=== PATIENT | female | born 1935 | race Caucasian/White ===

== ENCOUNTER 2018-11-16 09:31 | Observation (INO) | payer MEDICARE ==
[2018-11-16 11:07] LABS: BASO % 0.4 % (0.0-2.0); LYMPH # 0.5 K/uL (1.0-4.3); LYMPH % 8.8 % (20.0-40.0); MEAN CORPUSCULAR HEMOGLOBIN 32.4 pg (27.0-31.0); MEAN CORPUSCULAR HGB CONC 33.3 g/dL (33.0-37.0); MEAN PLATELET VOLUME 8.8 fL (7.2-11.7); MONO # 0.2 K/uL (0.0-0.8); MONO % 3.5 % (0.0-10.0); NEUT # 5.3 K/uL (1.8-7.0); NEUT % 87.3 % (50.0-75.0); PLATELET COUNT 191 K/uL (130-400); RBC 3.43 Mil/uL (3.80-5.20); RED CELL DISTRIBUTION WIDTH 15.4 % (11.5-14.5)
[2018-11-16 11:13] LABS: INR 1.1; PROTHROMBIN TIME 12.4 SECONDS (9.7-12.2)
[2018-11-16 11:19] LABS: HEMOGLOBIN 11.1 g/dL (11.0-16.0); MEAN CELL VOLUME 97.4 fL (81.0-99.0)
--- NOTE | 2018-11-16 11:34 | CT ---
Date of service: 11/16/2018 PROCEDURE: CT HEAD WITHOUT CONTRAST. HISTORY: dizzy COMPARISON: None available. TECHNIQUE: Axial computed tomography images were obtained through the head/brain without intravenous contrast. Radiation dose: Total exam DLP = 970.75 mGy-cm. This CT exam was performed using one or more of the following dose reduction techniques: Automated exposure control, adjustment of the mA and/or kV according to patient size, and/or use of iterative reconstruction technique. FINDINGS: HEMORRHAGE: No intracranial hemorrhage. BRAIN: No mass effect or edema. Minimal atrophy consistent with patient age. Mild periventricular white matter lucency consistent with chronic microvascular ischemic change. No evidence of acute infarct. VENTRICLES: Unremarkable. No hydrocephalus. CALVARIUM: Unremarkable. PARANASAL SINUSES: Unremarkable as visualized. No significant inflammatory changes. MASTOID AIR CELLS: Unremarkable as visualized. No inflammatory changes. OTHER FINDINGS: None. IMPRESSION: No intracranial mass, hemorrhage or evidence of acute infarct. Age related atrophy and mild chronic white matter ischemic change.
[2018-11-16 11:49] LABS: LYMPHOCYTE 7 % (20-40); MONOCYTE 4 % (0-10); NEUTROPHIL 89 % (50-75); PLATELET ESTIMATE NORMAL (NORMAL); TOTAL CELLS COUNTED 100
[2018-11-16 11:50] LABS: ANISOCYTOSIS SLIGHT; HYPOCHROMIC SLIGHT; POLYCHROMIC SLIGHT
[2018-11-16 11:52] LABS: ALB/GLOB RATIO 1.1 (1.0-2.1); ALBUMIN 4.1 g/dL (3.5-5.0); ALT/SGPT 21 U/L (9-52); AST/SGOT 31 U/L (14-36); BLOOD UREA NITROGEN 18 mg/dL (7-17); CALCIUM 9.5 mg/dl (8.6-10.4); GFR NON-AFRICAN AMERICAN > 60
--- NOTE | 2018-11-16 11:56 | RAD ---
Date of service: 11/16/2018 PROCEDURE: CHEST RADIOGRAPH, 1 VIEW HISTORY: dizzy COMPARISON: None available. FINDINGS: LUNGS: Clear. PLEURA: No pneumothorax or pleural fluid seen. CARDIOVASCULAR: There is atherosclerotic calcification the thoracic aorta. Normal. OSSEOUS STRUCTURES: No significant abnormalities. VISUALIZED UPPER ABDOMEN: Normal. OTHER FINDINGS: None. IMPRESSION: No active disease.
[2018-11-16 12:21] LABS: SQUAMOUS EPITHIAL < 1 /hpf (0-5); URINE BACTERIA RARE (<OCC); URINE BILIRUBIN NEGATIVE (NEGATIVE); URINE BLOOD NEGATIVE (NEGATIVE); URINE CLARITY Clear (Clear); URINE COLOR Yellow (YELLOW); URINE GLUCOSE (UA) NORMAL (Normal); URINE LEUKOCYTE ESTERASE NEG Leu/uL (Negative); URINE PROTEIN 2+ mg/dL (NEGATIVE); URINE UROBILINOGEN NORMAL mg/dL (0.2-1.0)
--- NOTE | 2018-11-16 14:16 | C.PDOC ---
History Of Present Illness 82 year old female presents to the emergency department with complaints of dizziness for the last two weeks. Patient states that she was seen by her PMD two days ago and given Meclizine. Patient reports that she does not feel better after finishing it. She denies headache or pain, and describes her dizziness as feeling unsteady. Time Seen by Provider: 11/16/18 09:55 Chief Complaint (Nursing): Dizziness/Lightheaded History Per: Patient History/Exam Limitations: no limitations Onset/Duration Of Symptoms: Other (two weeks) Current Symptoms Are (Timing): Still Present Past Medical History Reviewed: Historical Data, Nursing Documentation, Vital Signs Vital Signs: Last Vital Signs Temp 98.5 F 11/16/18 13:10 Pulse 91 H 11/16/18 13:10 Resp 18 11/16/18 13:10 BP 189/60 H 11/16/18 13:10 Pulse Ox 98 11/16/18 13:10 - Medical History PMH: Diabetes, HTN Surgical History: No Surg Hx Family History: States: No Known Family Hx - Social History Hx Tobacco Use: Yes Hx Alcohol Use: No Hx Substance Use: No - Immunization History Hx Tetanus Toxoid Vaccination: No Hx Influenza Vaccination: No Hx Pneumococcal Vaccination: No Review Of Systems Except As Marked, All Systems Reviewed And Found Negative. Constitutional: Negative for: Fever, Chills Gastrointestinal: Negative for: Nausea, Vomiting, Abdominal Pain, Diarrhea Neurological: Positive for: Dizziness. Negative for: Headache Physical Exam - Physical Exam Appears: Non-toxic, No Acute Distress Skin: Warm, Dry Head: Atraumatic, Normacephalic Eye(s): bilateral: Normal Inspection, PERRL, EOMI Nose: Normal Oral Mucosa: Moist Throat: Normal, No Erythema Neck: Normal, Supple Chest: Symmetrical, No Tenderness Cardiovascular: Rhythm Regular, No Murmur Respiratory: Normal Breath Sounds, No Rales, No Rhonchi, No Wheezing Gastrointestinal/Abdominal: Soft, No Tenderness Extremity: Normal ROM Neurological/Psych: Oriented x3, Normal Speech, Normal Cognition ED Course And Treatment - Laboratory Results Result Diagrams: 11/16/18 10:59 11/16/18 10:59 Lab Results: PT 12.4 SECONDS (9.7-12.2) H 11/16/18 10:59 INR 1.1 11/16/18 10:59 APTT 30 SECONDS (21-34) 11/16/18 10:59 Troponin I < 0.0120 ng/mL (0.00-0.120) 11/16/18 10:59 Total Bilirubin 0.4 mg/dL (0.2-1.3) 11/16/18 10:59 AST 31 U/L (14-36) 11/16/18 10:59 ALT 21 U/L (9-52) 11/16/18 10:59 Alkaline Phosphatase 104 U/L (38-126) 11/16/18 10:59 Total Protein 7.6 g/dL (6.3-8.3) 11/16/18 10:59 Albumin 4.1 g/dL (3.5-5.0) 11/16/18 10:59 Globulin 3.6 gm/dL (2.2-3.9) 11/16/18 10:59 Albumin/Globulin Ratio 1.1 (1.0-2.1) 11/16/18 10:59 Urine Color Yellow (YELLOW) 11/16/18 12:01 Urine Clarity Clear (Clear) 11/16/18 12:01 Urine pH 7.0 (5.0-8.0) 11/16/18 12:01 Ur Specific Lov[place] 1.008 (1.003-1.030) 11/16/18 12:01 Urine Protein 2+ mg/dL (NEGATIVE) H 11/16/18 12:01 Urine Glucose (UA) Normal mg/dL (Normal) 11/16/18 12:01 Urine Ketones Negative mg/dL (NEGATIVE) 11/16/18 12:01 Urine Blood Negative (NEGATIVE) 11/16/18 12:01 Urine Nitrate Negative (NEGATIVE) 11/16/18 12:01 Urine Bilirubin Negative (NEGATIVE) 11/16/18 12:01 Urine Urobilinogen Normal mg/dL (0.2-1.0) 11/16/18 12:01 Ur Leukocyte Esterase Neg Sarah/uL (Negative) 11/16/18 12:01 Urine WBC (Auto) < 1 /hpf (0-5) 11/16/18 12:01 Urine RBC (Auto) 2 /hpf (0-3) 11/16/18 12:01 Ur Squamous Epith Cells < 1 /hpf (0-5) 11/16/18 12:01 Urine Bacteria Rare (<OCC) 11/16/18 12:01 Interpretation Of ECG: Normal sinus rhythm at 84bpm. Premature supraventricular complexes, incomplete RBBB. O2 Sat by Pulse Oximetry: 98 (RA) Pulse Ox Interpretation: Normal - Radiology CXR: Interpreted by Me, Viewed By Me CXR Interpretation: Yes: No Acute Disease - CT Scan/US CT Head Other Rad Studies (CT/US): Read By Radiologist, Radiology Report Reviewed CT/US Interpretation: Date of service: 11/16/2018. PROCEDURE: CT HEAD WITHOUT CONTRAST. HISTORY: dizzy. COMPARISON: None available. TECHNIQUE: Axial computed tomography images were obtained through the head/brain without intravenous contrast. Radiation dose: Total exam DLP = 970.75 mGy-cm. This CT exam was performed using one or more of the following dose reduction techniques: Automated exposure control, adjustment of the mA and/or kV according to patient size, and/or use of iterative reconstruction technique. FINDINGS: HEMORRHAGE: No intracranial hemorrhage. BRAIN: No mass effect or edema. Minimal atrophy consistent with patient age. Mild periventricular white matter lucency consistent with chronic microvascular ischemic change. No evidence of acute infarct. VENTRICLES: Unremarkable. No hydrocephalus. CALVARIUM: Unremarkable. PARANASAL SINUSES: Unremarkable as visualized. No significant inflammatory changes. MASTOID AIR CELLS: Unremarkable as visualized. No inflammatory changes. OTHER FINDINGS: None. IMPRESSION: No intracranial mass, hemorrhage or evidence of acute infarct. Age related atrophy and mild chronic white matter ischemic change. Medical Decision Making Medical Decision Making: Plan: CT Head EKG Chemistry Bloodwork CXR Urinalysis Dr. Maciej Licona accepted the patient to telemetry for observation. Disposition - Disposition Disposition: HOSPITALIZED Disposition Time: 14:15 Condition: FAIR - Clinical Impression Clinical Impression: Dizziness - PA / INTRAVENOUS THERAPY NURSE / Resident Statement MD/DO has reviewed & agrees with the documentation as recorded. - Scribe Statement The provider has reviewed the documentation as recorded by the Scribe (Scott Eliane) All medical record entries made by the Scribe were at my direction and personally dictated by me. I have reviewed the chart and agree that the record accurately reflects my personal performance of the history, physical exam, medical decision making, and the department course for this patient. I have also personally directed, reviewed, and agree with the discharge instructions and disposition. Decision To Admit - Pt Status Changed To: Hospital Disposition Of: Observation - . Bed Request Type: Telemetry Admitting Physician: Mandy Licona Patient Diagnosis: Dizziness
[2018-11-16 18:37] VITALS: RESP 20
--- NOTE | 2018-11-16 19:51 | CP.PCM.HP ---
Past Patient History - Past Social History Smoking Status: Heavy Smoker > 10 Cigarettes Daily - CARDIAC Hx Hypertension: Yes - ENDOCRINE/METABOLIC Hx Diabetes Mellitus Type 2: Yes - PSYCHIATRIC Hx Substance Use: No - SURGICAL HISTORY Hx Surgeries: No - ANESTHESIA Hx Anesthesia: No Meds Allergies/Adverse Reactions: Allergies Allergy/AdvReac Type Severity Reaction Status Date / Time No Known Allergies Allergy Verified 11/16/18 09:40 Results - Vital Signs Recent Vital Signs: Last Vital Signs Temp 98.2 F 11/16/18 16:00 Pulse 76 11/16/18 16:00 Resp 20 11/16/18 16:00 BP 135/56 L 11/16/18 16:00 Pulse Ox 98 11/16/18 16:57 - Labs Result Diagrams: 11/16/18 10:59 11/16/18 10:59 Labs: Laboratory Results - last 24 hr 11/16/18 11/16/18 11/16/18 10:59 10:59 10:59 WBC 6.0 RBC 3.43 L Hgb 11.1 D Hct 33.4 L MCV 97.4 D MCH 32.4 H MCHC 33.3 RDW 15.4 H Plt Count 191 MPV 8.8 Neut % (Auto) 87.3 H Lymph % (Auto) 8.8 L [place] % (Auto) 3.5 Eos % (Auto) 0.0 Baso % (Auto) 0.4 Neut # (Auto) 5.3 Lymph # (Auto) 0.5 L [place] # (Auto) 0.2 Eos # (Auto) 0.0 Baso # (Auto) 0.0 Neutrophils % (Manual) 89 H Lymphocytes % (Manual) 7 L Monocytes % (Manual) 4 Platelet Estimate Normal Polychromasia Slight Hypochromasia (manual) Slight Anisocytosis (manual) Slight Macrocytosis (manual) Slight PT 12.4 H INR 1.1 APTT 30 Sodium Potassium Chloride Carbon Dioxide Anion Gap BUN Creatinine Est GFR ( Amer) Est GFR (Non-Af Amer) Random Glucose Calcium Total Bilirubin AST ALT Alkaline Phosphatase Total Creatine Kinase CK-MB (Mass) Troponin I Total Protein Albumin Globulin Albumin/Globulin Ratio Urine Color Urine Clarity Urine pH Ur Specific Wilkinson Urine Protein Urine Glucose (UA) Urine Ketones Urine Blood Urine Nitrate Urine Bilirubin Urine Urobilinogen Ur Leukocyte Esterase Urine WBC (Auto) Urine RBC (Auto) Ur Squamous Epith Cells Urine Bacteria Influenza Typ A,B (EIA) Negative for flu a/b 11/16/18 11/16/18 10:59 12:01 WBC RBC Hgb Hct MCV MCH MCHC RDW Plt Count MPV Neut % (Auto) Lymph % (Auto) [place] % (Auto) Eos % (Auto) Baso % (Auto) Neut # (Auto) Lymph # (Auto) [place] # (Auto) Eos # (Auto) Baso # (Auto) Neutrophils % (Manual) Lymphocytes % (Manual) Monocytes % (Manual) Platelet Estimate Polychromasia Hypochromasia (manual) Anisocytosis (manual) Macrocytosis (manual) PT INR APTT Sodium 132 Potassium 4.3 Chloride 102 Carbon Dioxide 25 Anion Gap 11 BUN 18 H Creatinine 0.8 Est GFR ( Amer) > 60 Est GFR (Non-Af Amer) > 60 Random Glucose 147 H Calcium 9.5 Total Bilirubin 0.4 AST 31 ALT 21 Alkaline Phosphatase 104 Total Creatine Kinase 62 CK-MB (Mass) 0.40 Troponin I < 0.0120 Total Protein 7.6 Albumin 4.1 Globulin 3.6 Albumin/Globulin Ratio 1.1 Urine Color Yellow Urine Clarity Clear Urine pH 7.0 Ur Specific Wilkinson 1.008 Urine Protein 2+ H Urine Glucose (UA) Normal Urine Ketones Negative Urine Blood Negative Urine Nitrate Negative Urine Bilirubin Negative Urine Urobilinogen Normal Ur Leukocyte Esterase Neg Urine WBC (Auto) < 1 Urine RBC (Auto) 2 Ur Squamous Epith Cells < 1 Urine Bacteria Rare Influenza Typ A,B (EIA)
[2018-11-16] MEDS: (Novolog) Insulin Aspart, Recombinant 100 u/ml 10 ml vial SC SCH (22:26)
[2018-11-17] MEDS: (Novolog) Insulin Aspart, Recombinant 100 u/ml 10 ml vial SC SCH ×5 (07:38→22:00)
[2018-11-17 11:47] LABS: FREE T4 0.74 ng/dL (0.78-2.19)
--- NOTE | 2018-11-17 13:39 | CP.PCM.CON ---
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 Past Patient History - Past Social History Smoking Status: Heavy Smoker > 10 Cigarettes Daily - CARDIAC Hx Hypertension: Yes - ENDOCRINE/METABOLIC Hx Diabetes Mellitus Type 2: Yes - PSYCHIATRIC Hx Substance Use: No - SURGICAL HISTORY Hx Surgeries: No - ANESTHESIA Hx Anesthesia: No Meds Allergies/Adverse Reactions: Allergies Allergy/AdvReac Type Severity Reaction Status Date / Time No Known Allergies Allergy Verified 11/16/18 09:40 - Medications Medications: Current Medications Clopidogrel Bisulfate (Plavix) 75 mg PO DAILY [facility] Enoxaparin Sodium (Lovenox) 40 mg SC DAILY [facility] Famotidine (Pepcid) 20 mg PO BID [facility] Last Admin: 11/17/18 09:49 Dose: 20 mg Insulin Aspart (Novolog) 0 unit SC [facility]; Protocol Last Admin: 11/17/18 12:32 Dose: Not Given Meclizine HCl (Antivert) 25 mg PO TID [facility] Last Admin: 11/17/18 09:55 Dose: 25 mg Metformin HCl (Glucophage) 1,000 mg PO BID [facility] Last Admin: 11/17/18 09:49 Dose: 1,000 mg Ondansetron HCl (Zofran Odt) 4 mg PO BID PRN PRN Reason: Nausea/Vomiting Pioglitazone HCl (Actos) 15 mg PO DAILY [facility] Last Admin: 11/17/18 09:49 Dose: 15 mg Results - Vital Signs Recent Vital Signs: Last Vital Signs Temp 98.8 F 11/17/18 09:24 Pulse 71 11/17/18 09:24 Resp 20 11/17/18 09:24 BP 152/60 H 11/17/18 09:24 Pulse Ox 98 11/17/18 09:24 - Labs Result Diagrams: 11/16/18 10:59 11/16/18 10:59 Labs: Laboratory Results - last 24 hr 11/16/18 11/16/18 11/17/18 16:39 21:20 06:25 ESR POC Glucose (mg/dL) 148 H 142 H 131 H Hemoglobin A1c C-Reactive Protein Triglycerides Cholesterol LDL Cholesterol Direct HDL Cholesterol Vitamin B12 Free T4 TSH 3rd Generation 11/17/18 11/17/18 11/17/18 11:10 11:10 11:10 ESR 45 H POC Glucose (mg/dL) Hemoglobin A1c 6.2 C-Reactive Protein 5.20 Triglycerides 64 Cholesterol 140 LDL Cholesterol Direct 69 HDL Cholesterol 70 Vitamin B12 310 Free T4 TSH 3rd Generation 11/17/18 11/17/18 11:10 11:37 ESR POC Glucose (mg/dL) 167 H Hemoglobin A1c C-Reactive Protein Triglycerides Cholesterol LDL Cholesterol Direct HDL Cholesterol Vitamin B12 Free T4 0.74 L TSH 3rd Generation 0.99
[2018-11-17] MEDS: Enoxaparin 40 mg Syringe SC SCH (13:53)
--- NOTE | 2018-11-17 15:29 | CP.PCM.PN ---
Subjective - Date & Time of Evaluation Date of Evaluation: 11/17/18 Time of Evaluation: 11:45 - Subjective Subjective: clinically same Objective - Vital Signs/Intake and Output Vital Signs (last 24 hours): Temp Pulse Resp BP Pulse Ox 98.8 F 71 20 152/60 H 98 11/17/18 09:24 11/17/18 09:24 11/17/18 09:24 11/17/18 09:24 11/17/18 14:06 - Medications Medications: Current Medications Clopidogrel Bisulfate (Plavix) 75 mg PO DAILY [facility] Enoxaparin Sodium (Lovenox) 40 mg SC DAILY [facility] Last Admin: 11/17/18 13:53 Dose: 40 mg Famotidine (Pepcid) 20 mg PO BID [facility] Last Admin: 11/17/18 09:49 Dose: 20 mg Insulin Aspart (Novolog) 0 unit SC [facility]; Protocol Last Admin: 11/17/18 12:32 Dose: Not Given Meclizine HCl (Antivert) 25 mg PO TID [facility] Last Admin: 11/17/18 13:53 Dose: 25 mg Metformin HCl (Glucophage) 1,000 mg PO BID [facility] Last Admin: 11/17/18 09:49 Dose: 1,000 mg Ondansetron HCl (Zofran Odt) 4 mg PO BID PRN PRN Reason: Nausea/Vomiting Pioglitazone HCl (Actos) 15 mg PO DAILY [facility] Last Admin: 11/17/18 09:49 Dose: 15 mg - Labs Labs: 11/16/18 10:59 11/16/18 10:59 PT 12.4 SECONDS (9.7-12.2) H 11/16/18 10:59 INR 1.1 11/16/18 10:59 APTT 30 SECONDS (21-34) 11/16/18 10:59
--- NOTE | 2018-11-18 07:14 | CON ---
DATE: 11/17/2018 ATTENDING PHYSICIAN: Candelaria Licona MD LOCATION: The patient is seen in room number 669, bed A. REASON FOR CONSULTATION: Dizziness. CHIEF COMPLAINT: The patient was brought into [facility] with history of recurrent dizziness which is not getting better by medication which was given by her PMD. From neurological point of view, I was called in to evaluate her for further management. HISTORY OF PRESENT ILLNESS: The patient is an 82-year-old moderately built, right-handed female presenting with about 2 weeks history of dizziness, manifesting as vertiginous feeling, associating with some nauseous sensation and aversion to the food. Not associating with visual or bulbar dysfunction. No hearing loss. No history of preceding illness or trauma to her head or neck. No similar episodes happened in the past. These symptoms momentarily happened, and it disappeared which she never had it before in the past. PAST MEDICAL HISTORY: Ath-[id number] diabetes mellitus, hypertension, and dyslipidemia. ALLERGIES: NO KNOWN ALLERGIES. PERSONAL HISTORY: She smokes. No history of alcohol abuse. REVIEW OF SYSTEMS: Twelve-point system being reviewed. From neuro, new dizziness. MEDICATIONS: Actos, Antivert, Glucophage, Lovenox, Pepcid, Zofran. PHYSICAL EXAMINATION: VITAL SIGNS: Blood pressure 152/60, mean artery pressure of 90, respiratory rate 20, pulse rate 71 and regular, temperature 98.8. NECK: Supple. No carotid bruits. HEART: Sounds regular. CHEST: Fair air entry. EXTREMITIES: No edema in legs. NEUROLOGIC EXAMINATION: Mental status examination: She is awake, alert and oriented to person, place, and time. Speech is clear. Naming, repetition, fluency, and comprehension all within normal. Cranial nerve examination: Visual field intact. Pupils reactive to light. Extraocular movement normal. No nystagmus. No facial sensory deficit. No facial asymmetry. Hearing is normal. Tongue is midline. Good gag. Motor examination: On outstretched hand with eyes closed, no drift noted. Power is symmetric on either side. Deep reflexes biceps, brachialis, triceps, knee, and ankle all are absent. Plantars are equivocal response. Sensory examination: Bilateral distal symmetric sensorimotor neuropathy. Coordination: [id number] test is intact. Gait: Broad based gait. Romberg sign negative. CONCLUSION: On reviewing her medical history from her as well as medical records and my neurological examination, suggestive of possible posterior cerebral artery ischemic process, considering her risk factors, hypertension, dyslipidemia, and diabetes mellitus should be ruled out. Bilateral distal symmetric sensorimotor neuropathy. Workup CT of the head reviewed, no acute pathology is noted. EKG normal sinus rhythm. Blood workup, WBC 6, hemoglobin 11.1, hematocrit 33.4, platelet 181. PT 12.4, INR 1.1, PTT 30. Sodium 132, potassium 4.3, chloride 102, bicarbonate 25, BUN 18, GFR more than 60, glucose 131. Urine shows 2+ proteinuria. RECOMMENDATIONS: 1. MRI of the brain to rule out ischemic process. 2. Carotid Doppler to assess the stenosis of carotid as well as vertebral arteries. 3. Echocardiogram to rule out any cardiogenic source for her problem. 4. Out of bed, encouraging to have fluids. 5. Stroke prophylaxis. 6. Plavix is started in addition to her medication. 7. Fall precaution. The patient will be followed while she is in the hospital. Abdon Sandra MD
[2018-11-18] MEDS: (Novolog) Insulin Aspart, Recombinant 100 u/ml 10 ml vial SC SCH ×4 (07:53→21:59)
--- NOTE | 2018-11-18 09:35 | PN ---
DATE: 11/18/2018 TIME OF EVALUATION: 06:45 a.m. NEUROLOGICAL PROBLEM: Dizziness. PHYSICAL EXAMINATION: VITAL SIGNS: Blood pressure 124/47, mean arterial pressure 72, respiratory rate 18, temperature 98.2 with a pulse rate of 66. The patient is still complaining of persistent dizziness, inability to walk good, holding objects with sensitivity to smell. The patient is also nauseous and vomited last night. On examination, no new focality noted. The patient's medications for her nausea can be changed and fall precautions. The patient is scheduled to have MRI of the brain which could be done today and will be following her closely. Continue the present management as recommended. Abdon Sandra MD
[2018-11-18] MEDS: Dextrose 5%/0.45% NS 1,000 ML IV SCH ×2 (11:33→21:59)
--- NOTE | 2018-11-18 11:34 | MRI ---
Date of service: 11/18/2018 PROCEDURE: MRI BRAIN WITHOUT CONTRAST HISTORY: GAMING PIT BOSS STROKE PROCESS /IAC PATH COMPARISON: CT head without contrast from 11/16/2018. TECHNIQUE: Multiplanar, multisequence MR images of the brain were obtained without intravenous contrast enhancement. FINDINGS: HEMORRHAGE: None DWI: No evidence of an acute or early subacute infarction. BRAIN PARENCHYMA: There are mild chronic microangiopathic changes. There is no mass, mass effect or abnormal extra-axial fluid collection. There is no territorial infarction. The midline sagittal structures are normal. VENTRICLES: There is mild age-related global parenchymal volume loss and proportionate enlargement of the ventricles and cortical sulci. CRANIUM: There is normal bone marrow signal pattern. ORBITS: Grossly normal in appearance. PARANASAL SINUSES/MASTOIDS: Predominantly clear. Minimal fluid in the left mastoid tip. VASCULAR SYSTEM: There are normal signal voids in the larger intracranial arteries. OTHER FINDINGS: None. IMPRESSION: No acute intracranial abnormality Mild chronic microangiopathic changes and mild age-related global parenchymal loss.
[2018-11-18] MEDS: Enoxaparin 40 mg Syringe SC SCH (11:38)
[2018-11-18 14:13] LABS: BASO % 0.2 % (0.0-2.0); EOS % 0.2 % (0.0-4.0); LYMPH % 22.6 % (20.0-40.0); MEAN CELL VOLUME 97.1 fL (81.0-99.0); MEAN CORPUSCULAR HEMOGLOBIN 33.2 pg (27.0-31.0); MEAN CORPUSCULAR HGB CONC 34.2 g/dL (33.0-37.0); MEAN PLATELET VOLUME 8.9 fL (7.2-11.7); MONO # 0.4 K/uL (0.0-0.8); MONO % 8.8 % (0.0-10.0); NEUT # 3.1 K/uL (1.8-7.0); NEUT % 68.2 % (50.0-75.0); RBC 3.31 Mil/uL (3.80-5.20); RED CELL DISTRIBUTION WIDTH 15.5 % (11.5-14.5); WHITE BLOOD COUNT 4.5 K/uL (4.8-10.8)
[2018-11-18 14:36] LABS: ALB/GLOB RATIO 1.2 (1.0-2.1); ALBUMIN 3.8 g/dL (3.5-5.0); ALT/SGPT 19 U/L (9-52); AST/SGOT 22 U/L (14-36); BLOOD UREA NITROGEN 13 mg/dL (7-17); CALCIUM 8.4 mg/dl (8.6-10.4); GFR NON-AFRICAN AMERICAN > 60
--- NOTE | 2018-11-18 18:50 | CP.PCM.PN ---
Subjective - Date & Time of Evaluation Date of Evaluation: 11/18/18 Time of Evaluation: 11:15 - Subjective Subjective: clinically same Objective - Vital Signs/Intake and Output Vital Signs (last 24 hours): Temp Pulse Resp BP Pulse Ox 98 F 72 20 149/55 L 97 11/18/18 15:52 11/18/18 16:48 11/18/18 15:52 11/18/18 15:52 11/18/18 15:52 - Medications Medications: Current Medications Clopidogrel Bisulfate (Plavix) 75 mg PO DAILY [facility] Last Admin: 11/18/18 09:43 Dose: 75 mg Enoxaparin Sodium (Lovenox) 40 mg SC DAILY [facility] Last Admin: 11/18/18 11:38 Dose: 40 mg Famotidine (Pepcid) 20 mg PO BID [facility] Last Admin: 11/18/18 18:49 Dose: 20 mg Dextrose/Sodium Chloride (Dextrose 5%/0.45% Ns 1000 Ml) 1,000 mls @ 72 mls/hr IV .[id number] [facility] Last Admin: 11/18/18 11:33 Dose: 72 mls/hr Insulin Aspart (Novolog) 0 unit SC [facility]; Protocol Last Admin: 11/18/18 18:41 Dose: Not Given Meclizine HCl (Antivert) 25 mg PO TID [facility] Last Admin: 11/18/18 18:49 Dose: 25 mg Metformin HCl (Glucophage) 1,000 mg PO BID [facility] Last Admin: 11/18/18 18:49 Dose: 1,000 mg Ondansetron HCl (Zofran Odt) 4 mg PO BID PRN PRN Reason: Nausea/Vomiting Pioglitazone HCl (Actos) 15 mg PO DAILY [facility] Last Admin: 11/18/18 09:43 Dose: 15 mg - Labs Labs: 11/18/18 13:58 11/18/18 13:58 PT 12.4 SECONDS (9.7-12.2) H 11/16/18 10:59 INR 1.1 11/16/18 10:59 APTT 30 SECONDS (21-34) 11/16/18 10:59
[2018-11-19] MEDS: Dextrose 5%/0.45% NS 1,000 ML IV SCH ×2 (00:23→10:43)
[2018-11-19] MEDS: (Novolog) Insulin Aspart, Recombinant 100 u/ml 10 ml vial SC SCH ×2 (08:08→11:51)
[2018-11-19] MEDS: Enoxaparin 40 mg Syringe SC SCH (09:49)
--- NOTE | 2018-11-19 14:44 | CP.PCM.PN ---
Subjective - Date & Time of Evaluation Date of Evaluation: 11/19/18 Time of Evaluation: 12:30 - Subjective Subjective: clinically same Objective - Vital Signs/Intake and Output Vital Signs (last 24 hours): Temp Pulse Resp BP Pulse Ox 98.2 F 69 20 171/63 H 97 11/19/18 08:41 11/19/18 12:00 11/19/18 08:41 11/19/18 08:41 11/19/18 08:41 - Medications Medications: Current Medications Clopidogrel Bisulfate (Plavix) 75 mg PO DAILY [facility] Last Admin: 11/19/18 09:39 Dose: 75 mg Enoxaparin Sodium (Lovenox) 40 mg SC DAILY [facility] Last Admin: 11/19/18 09:49 Dose: 40 mg Famotidine (Pepcid) 20 mg PO BID [facility] Last Admin: 11/19/18 09:39 Dose: 20 mg Dextrose/Sodium Chloride (Dextrose 5%/0.45% Ns 1000 Ml) 1,000 mls @ 72 mls/hr IV .[id number] [facility] Last Admin: 11/19/18 10:43 Dose: Not Given Insulin Aspart (Novolog) 0 unit SC [facility]; Protocol Last Admin: 11/19/18 11:51 Dose: Not Given Meclizine HCl (Antivert) 25 mg PO TID [facility] Last Admin: 11/19/18 13:21 Dose: 25 mg Metformin HCl (Glucophage) 1,000 mg PO BID [facility] Last Admin: 11/19/18 09:39 Dose: 1,000 mg Ondansetron HCl (Zofran Odt) 4 mg PO BID PRN PRN Reason: Nausea/Vomiting Last Admin: 11/18/18 22:49 Dose: 4 mg Pioglitazone HCl (Actos) 15 mg PO DAILY [facility] Last Admin: 11/19/18 09:39 Dose: 15 mg - Labs Labs: 11/18/18 13:58 11/18/18 13:58 PT 12.4 SECONDS (9.7-12.2) H 11/16/18 10:59 INR 1.1 11/16/18 10:59 APTT 30 SECONDS (21-34) 11/16/18 10:59
[2018-11-19 15:54] VITALS: BP 122/54; TEMP 97.9; O2SAT 98
[2018-11-19 17:30] VITALS: PULSE 94
--- NOTE | 2018-11-19 19:46 | CARD ---
APPROVED REPORT Date of service: 11/16/2018 EKG Measurement Heart [id number] <Conclusion> Sinus rhythm with premature supraventricular complexes Left axis deviation Incomplete right bundle branch block Minimal voltage criteria for LVH, may be normal variant Abnormal ECG
--- NOTE | 2018-11-20 12:42 | CARD ---
APPROVED REPORT Date of service: 11/19/2018 EXAM: Two-dimensional and M-mode echocardiogram with Doppler and color Doppler. INDICATION Dizziness and Vertigo CARDIOGINE CAUSE FOR NEURO EVENT RISK FACTORS Hypertension Diabetes Smoking 2D DIMENSIONS IVSd0.9 (0.7-1.1cm)Aortic Root (2D)2.9 (2.0-3.7cm) LVDd4.6 (3.9-5.9cm)PWd1.2 (0.7-1.1cm) LA Xyhbmz82 (18-58mL)LVDs2.8 (2.5-4.0cm) FS (%) 38.6 %LVEF (%)69.0 (>50%) LVEF (James's)72.60 %IVC0.00 cm M-Mode DIMENSIONS RVDd1.21 (2.1-3.2cm)Left Atrium (MM)3.92 (2.5-4.0cm) IVSd0.78 (0.7-1.1cm)Aortic Root2.99 (2.2-3.7cm) LVDd5.82 (4.0-5.6cm)Aortic Cusp Exc.2.20 (1.5-2.0cm) PWd0.83 (0.7-1.1cm)FS (%) 34 % LVDs3.85 (2.0-3.8cm)LVEF (%)62 (>50%) Aortic Valve AoV Peak Pksbzesi909.1cm/Tyrese Peak GR.14mmHgAI P 1/2 [id number] Mitral Valve MV E Nrnpqavy474.3cm/sMV A Lfzdewox375.9cm/sE/A ratio0.9 FHXW532.18 cm/s TDI Lateral E' Peak V5.90cm/sMedial E' Peak V5.19cm/sE/Lateral E'23.9 E/Medial E'27.2 Tricuspid Valve TR Peak Hezxgdlo631gi/sTR Peak Gr.[id number] LEFT VENTRICLE The Left Ventricle is mildly dilated. There is normal left ventricular wall thickness. The Ejection Fraction is 60-65%. There is normal LV segmental wall motion. Transmitral Doppler flow pattern is Grade II-pseudonormal filling dynamics. The left atrial pressure is moderately elevated. RIGHT VENTRICLE The right ventricle is normal size. The right ventricular systolic function is normal. ATRIA The left atrium is borderline dilated. The right atrium size is normal. The interatrial septum is intact with no evidence for an atrial septal defect. 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 There is mild aortic regurgitation. MITRAL VALVE The mitral valve is normal in structure. Mitral regurgitation is mild. TRICUSPID VALVE The tricuspid valve is normal in structure. There is mild tricuspid regurgitation. Right ventricular systolic pressure is estimated at 37 mmHg. There is mild pulmonary hypertension. PULMONIC VALVE The pulmonary valve is normal in structure. GREAT VESSELS The aortic root is normal size. The aortic root displays mild sclerocalcific changes of the aortic root. The IVC is normal in size and collapses >50% with inspiration. PERICARDIAL EFFUSION There is no pericardial effusion. <Conclusion> The Left Ventricle is mildly dilated. The Ejection Fraction is 60-65%. Transmitral Doppler flow pattern is Grade II-pseudonormal filling dynamics. The left atrial pressure is moderately elevated. The left atrium is borderline dilated. 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 Mitral regurgitation is mild. There is mild tricuspid regurgitation. Right ventricular systolic pressure is estimated at 37 mmHg. There is mild pulmonary hypertension. The aortic root is normal size. The aortic root displays mild sclerocalcific changes of the aortic root. The IVC is normal in size and collapses >50% with inspiration. There is no pericardial effusion.
== END 2018-11-19 18:49 | disposition home or self-care (01) ==
LOC: C.ER 09:31 → C.9E 14:09 → C.6T 14:27
PROVIDERS: ADMIT Internal Medicine Nephrology; ATTEND Internal Medicine Nephrology
DX: G45.0 Vertebro-basilar artery syndrome (principal); E11.42 Type 2 diabetes mellitus with diabetic polyneuropathy; I10 Essential (primary) hypertension; E78.5 Hyperlipidemia, unspecified; F17.210 Nicotine dependence, cigarettes, uncomplicated; Z79.84 Long term (current) use of oral hypoglycemic drugs
CPT/HCPCS: 36415; 70450; 70551; 71045; 80053; 80061; 81001; 82550; 82553; 82607; 82948; 83036; 83090; 84439; 84443; 84484; 85025; 85610; 85651; 85730; 86140; 86334; 87804; 93005; 93306; 95812; 99285; G0378; J1650; J7042